=== PATIENT | female | born 1985 | race Two or more races ===

== ENCOUNTER 2022-10-11 08:15 | Inpatient (IN) | payer OTHER ==
[2022-10-11] MEDS ORDERED: CLONAZEPAM0.5 MG PO (09:21)
== END 2022-10-17 16:15 | disposition home or self-care (01) | DRG 743 ==
LOC: OB/GYN 10-16 07:00 → O/R 10-16 08:40 → OB/GYN 10-16 16:43
PROVIDERS: ADMIT Obstetrics & Gynecology; ATTEND Obstetrics & Gynecology
PROC: 0UT74ZZ Resection of Bilateral Fallopian Tubes, Percutaneous Endoscopic Approach (ICD-10-PCS; 2022-10-16)
PROC: 0UB04ZZ Excision of Right Ovary, Percutaneous Endoscopic Approach (ICD-10-PCS; 2022-10-16)
PROC: 0UT94ZZ Resection of Uterus, Percutaneous Endoscopic Approach (ICD-10-PCS; principal; 2022-10-16 07:00)
DX: N87.1 Moderate cervical dysplasia (principal); N83.01 Follicular cyst of right ovary; Z20.822 Contact with and (suspected) exposure to COVID-19